=== PATIENT | male | born 2000 | race Caucasian/White ===

== ENCOUNTER 2022-07-13 00:41 | Observation (INO) | payer OTHER ==
[2022-07-13] MEDS ORDERED: TRANEXAMIC ACID 1,000 MG in SODIUM CHLORIDE 0.9% 250 ML IV ONE (01:36)
[2022-07-13] MEDS ORDERED: TRANEXAMIC 1,000 MG/100ML-NACL 1,000 MG in SALINE 1 100ML.BAG IV STA (01:36)
[2022-07-13 01:57] LABS: Basophils % (A) 0 %; Eosinophils # (A) 0.2 k/uL (0-0.7); Eosinophils % (A) 1 %; HCT 36.3 % (39.0-53.0); HGB 12.6 gm/dL (13.0-17.5); Lymphocytes # (A) 1.2 k/uL (1.0-4.8); Lymphocytes % (A) 10 %; MCH 29.8 pg (25.0-35.0); MCHC 34.7 g/dL (31.0-37.0); MCV 85.8 fL (80.0-100.0); Mean Platelet Volume 7.1; Monocytes # (A) 0.5 k/uL (0-1.0); Monocytes % (A) 5 %; Neutrophils # (A) 9.8 k/uL (1.3-7.7); Neutrophils % (A) 83 %; Platelet Count 302 k/uL (150-450); RBC 4.23 m/uL (4.30-5.90); RDW 13.3 % (11.5-15.5); WBC 11.8 k/uL (4.0-11.0)
[2022-07-13 02:10] LABS: ALT 22 U/L (4-49); AST 28 U/L (17-59); African American GFR (CKD) >90 (>60 ml/min/1.73 sqM); Albumin 4.4 g/dL (3.5-5.0); Alkaline Phosphatase 74 U/L (38-126); Anion Gap 10 mmol/L; Blood Urea Nitrogen 20 mg/dL (9-20); Calcium 9.7 mg/dL (8.4-10.2); Carbon Dioxide 27 mmol/L (22-30); Chloride 103 mmol/L (98-107); Glucose 105 mg/dL (74-99); Non-African American GFR(CKD) >90 (>60 ml/min/1.73 sqM); Sodium 140 mmol/L (137-145); Total Bilirubin 0.6 mg/dL (0.2-1.3); Total Protein 7.7 g/dL (6.3-8.2)
--- NOTE | 2022-07-13 02:10 | ED ---
General Adult HPI - General Chief complaint: ENT Stated complaint: throwing up blood Time Seen by Provider: 07/13/22 01:06 Source: patient, RN notes reviewed, old records reviewed Mode of arrival: ambulatory Limitations: no limitations - History of Present Illness Initial comments: 21-year-old male who is 9 days postop tonsillectomy at outside facility presenting for vomiting blood and spitting up blood. Patient does report that he feels somewhat lightheaded. He's states that he had some bleeding this morning and had contacted his ENT surgeon who recommended follow-up tomorrow morning however this evening the bleeding has increased and the patient has spit up numerous large clots. - Related Data Allergies Allergy/AdvReac Type Severity Reaction Status Date / Time No Known Allergies Allergy Verified 07/13/22 00:58 Review of Systems ROS Statement: Those systems with pertinent positive or pertinent negative responses have been documented in the HPI. ROS Other: All systems not noted in ROS Statement are negative. Past Medical History Past Medical History: No Reported History History of Any Multi-Drug Resistant Organisms: None Reported Past Surgical History: Tonsillectomy Past Psychological History: No Psychological Hx Reported Smoking Status: Current every day smoker, Vaper Past Alcohol Use History: None Reported Past Drug Use History: None Reported General Exam Limitations: no limitations General appearance: alert, in distress Head exam: Present: atraumatic, normocephalic Eye exam: Present: normal appearance, PERRL ENT exam: Present: other (Brisk bleeding from the left tonsillar bed) Respiratory exam: Present: normal lung sounds bilaterally. Absent: respiratory distress Cardiovascular Exam: Present: regular rate, normal rhythm GI/Abdominal exam: Present: soft. Absent: distended, tenderness, guarding Extremities exam: Present: normal inspection Neurological exam: Present: alert, oriented X3 Skin exam: Present: pallor Course Vital Signs 07/13/22 07/13/22 07/13/22 00:54 02:08 02:29 Temperature 98 F Pulse Rate 65 106 H 70 Respiratory 18 18 Rate Blood Pressure 125/77 127/78 O2 Sat by Pulse 100 99 Oximetry - Reevaluation(s) Reevaluation #1: 07/13/[address] Robledo, patient will be taken to the operating room Reevaluation #2: 07/13/22 02:20 Patient vomits approximately 1 L of lucian blood, massive transfusion protocol was initiated so that blood can be readily available. Hemodynamics are still relatively stable, heart rate is increased to 80 or 90 and a blood pressure is 116 systolic Medical Decision Making - Medical Decision Making Was pt. sent in by a medical professional or institution (NADEEM Winn, FOLDED TOWEL MACHINE OPERATOR, urgent care, hospital, or residential...) When possible be specific @ -No Did you speak to anyone other than the patient for history (EMS, parent, family, police, friend...)? What history was obtained from this source @Patient's father Did you review nursing and triage notes (agree or disagree)? Why? @ -I reviewed and agree with nursing and triage notes Were old charts reviewed (outside hosp., previous admission, EMS record, old EKG, old radiological studies, urgent care reports/EKG's, residential records)? Report findings @ -No old charts were reviewed Differential Diagnosis (chest pain, altered mental status, abdominal pain women, abdominal pain men, vaginal bleeding, weakness, fever, dyspnea, syncope, h eadache, dizziness, GI bleed, back pain, seizure, CVA, palpatations, mental health, musculoskeletal)? @Postoperative tonsillectomy hemorrhage EKG interpreted by me (3pts min.). @ -As above X-rays interpreted by me (1pt min.). @ -None done CT interpreted by me (1pt min.). @ -None done U/S interpreted by me (1pt. min.). @ -None done What testing was considered but not performed or refused? (CT, X-rays, U/S, l abs)? Why? @ -None What meds were considered but not given or refused? Why? @ -None Did you discuss the management of the patient with other professionals (professionals i.e. NADEEM Winn, FOLDED TOWEL MACHINE OPERATOR, lab, RT, psych nurse, forensic social worker, process owner, teacher, mounted police officer, piano case and bench assembler)? Give summary @ -Dr. Robledo who will take the patient to the operating room Was smoking cessation discussed for >3mins.? @ -No Was critical care preformed (if so, how long)? @ -Yes Were there social determinants of health that impacted care today? How? (Homelessness, low income, unemployed, alcoholism, drug addiction, transportation, low edu. Level, literacy, decrease access to med. care, residential, rehab)? @ -No Was there de-escalation of care discussed even if they declined (Discuss DNR or withdrawal of care, Hospice)? DNR status @ -No What co-morbidities impacted this encounter? (DM, HTN, Smoking, COPD, CAD, Cancer, CVA, ARF, Chemo, Hep., AIDS, mental health diagnosis, sleep apnea, morbid obesity)? @ -None Was patient admitted / discharged? Hospital course, mention meds given and route, prescriptions, significant lab abnormalities, going to OR and other pertinent info. @21-year-old male presenting with postoperative tonsillectomy hemorrhage, postoperative 9. Patient has significant hemorrhage from the tonsillar bed predominantly on the left. He is pale. Blood pressure and heart rate stable. Initial hemoglobin is 12.6. Elbow point I did activate massive transfusion protocol due to significant increase in heart rate to the 140s. Ultimately the patient did not require blood within the emergency department. He was taken urgently to the operating room for hemorrhage control. Undiagnosed new problem with uncertain prognosis? @ -No Drug Therapy requiring intensive monitoring for toxicity (Heparin, Nitro, Insulin, Cardizem)? @ -No Were any procedures done? @ -No Diagnosis/symptom? @Postoperative tonsillectomy hemorrhage Acute, or Chronic, or Acute on Chronic? @Acute Uncomplicated (without systemic symptoms) or Complicated (systemic symptoms)? @ -Complicated Side effects of treatment? @ -No Exacerbation, Progression, or Severe Exacerbation? @ -No Poses a threat to life or bodily function? How? (Chest pain, [place], [place], pneumonia, PE, COPD, DKA, ARF, appy, cholecystitis, CVA, Diverticulitis, Homicidal, Suicidal, threat to staff... and all critical care pts) @Yes, hemorrhagic shock - Lab Data Result diagrams: 07/13/22 01:45 07/13/22 01:45 Lab Results 07/13/22 07/13/22 07/13/22 Range/Units 01:45 01:45 01:45 WBC 11.8 H (4.0-11.0) k/uL RBC 4.23 L (4.30-5.90) m/uL Hgb 12.6 L (13.0-17.5) gm/dL Hct 36.3 L (39.0-53.0) % MCV 85.8 (80.0-100.0) fL MCH 29.8 (25.0-35.0) pg MCHC 34.7 (31.0-37.0) g/dL RDW 13.3 (11.5-15.5) % Plt Count 302 (150-450) k/uL MPV 7.1 Neutrophils % 83 % Lymphocytes % 10 % Monocytes % 5 % Eosinophils % 1 % Basophils % 0 % Neutrophils # 9.8 H (1.3-7.7) k/uL Lymphocytes # 1.2 (1.0-4.8) k/uL Monocytes # 0.5 (0-1.0) k/uL Eosinophils # 0.2 (0-0.7) k/uL Basophils # 0.0 (0-0.2) k/uL PT 10.8 (9.0-12.0) sec INR 1.0 (<1.2) APTT 26.1 (22.0-30.0) sec Sodium 140 (137-145) mmol/L Potassium 4.0 (3.5-5.1) mmol/L Chloride 103 (98-107) mmol/L Carbon Dioxide 27 (22-30) mmol/L Anion Gap 10 mmol/L BUN 20 (9-20) mg/dL Creatinine 0.79 (0.66-1.25) mg/dL Est GFR (CKD-EPI)AfAm >90 (>60 ml/min/1.73 sqM) Est GFR (CKD-EPI)NonAf >90 (>60 ml/min/1.73 sqM) Glucose 105 H (74-99) mg/dL Calcium 9.7 (8.4-10.2) mg/dL Total Bilirubin 0.6 (0.2-1.3) mg/dL AST 28 (17-59) U/L ALT 22 (4-49) U/L Alkaline Phosphatase 74 (38-126) U/L Total Protein 7.7 (6.3-8.2) g/dL Albumin 4.4 (3.5-5.0) g/dL Blood Type Blood Type Confirm Blood Type Recheck Bld Type Recheck Status Antibody Screen Crossmatch Spec Expiration Date 07/13/22 07/13/22 Range/Units 01:51 01:51 WBC (4.0-11.0) k/uL RBC (4.30-5.90) m/uL Hgb (13.0-17.5) gm/dL Hct (39.0-53.0) % MCV (80.0-100.0) fL MCH (25.0-35.0) pg MCHC (31.0-37.0) g/dL RDW (11.5-15.5) % Plt Count (150-450) k/uL MPV Neutrophils % % Lymphocytes % % Monocytes % % Eosinophils % % Basophils % % Neutrophils # (1.3-7.7) k/uL Lymphocytes # (1.0-4.8) k/uL Monocytes # (0-1.0) k/uL Eosinophils # (0-0.7) k/uL Basophils # (0-0.2) k/uL PT (9.0-12.0) sec INR (<1.2) APTT (22.0-30.0) sec Sodium (137-145) mmol/L Potassium (3.5-5.1) mmol/L Chloride (98-107) mmol/L Carbon Dioxide (22-30) mmol/L Anion Gap mmol/L BUN (9-20) mg/dL Creatinine (0.66-1.25) mg/dL Est GFR (CKD-EPI)AfAm (>60 ml/min/1.73 sqM) Est GFR (CKD-EPI)NonAf (>60 ml/min/1.73 sqM) Glucose (74-99) mg/dL Calcium (8.4-10.2) mg/dL Total Bilirubin (0.2-1.3) mg/dL AST (17-59) U/L ALT (4-49) U/L Alkaline Phosphatase (38-126) U/L Total Protein (6.3-8.2) g/dL Albumin (3.5-5.0) g/dL Blood Type A Positive Blood Type Confirm A Positive Blood Type Recheck No Previous Record Bld Type Recheck Status CABO Indicated Antibody Screen NEGATIVE Crossmatch See Detail Spec Expiration Date 07/16/2022 - 235 Critical Care Time Critical Care Time: Yes Total Critical Care Time: 35 Disposition Clinical Impression: Post-tonsillectomy hemorrhage, Acute blood loss anemia Disposition: ADMITTED IP TO THIS [facility] Condition: Serious Is patient prescribed a controlled substance at d/c from ED?: No Referrals: None,Stated [Primary Care Provider] - 1-2 days Time of Disposition: 02:07
[2022-07-13 02:14] LABS: Partial Thromboplastin Time 26.1 sec (22.0-30.0); Prothrombin Time 10.8 sec (9.0-12.0)
[2022-07-13] MEDS ORDERED: ONDANSETRON 4 MG/2 ML VIAL IVP STA (02:19)
[2022-07-13] MEDS ORDERED: DEXAMETHASONE SOD PHOSPHATE 4 MG/ML 1 ML VIAL ONE (03:09)
[2022-07-13] MEDS ORDERED: PROPOFOL 10 MG/ML 20 ML VIAL IV ONE (03:09)
[2022-07-13] MEDS ORDERED: fentaNYL (PF) 50 MCG/ML 2 ML AMP ONE (03:09)
[2022-07-13] MEDS ORDERED: ACETAMINOPHEN IV (For NPO) 1,000 MG/100 ML VIAL ONE (03:09)
[2022-07-13] MEDS ORDERED: MIDAZOLAM 2 MG/2 ML VIAL ONE (03:09)
[2022-07-13] MEDS ORDERED: LIDOCAINE 2% INJ 20 MG/ML (2 ML VIAL) ONE (03:09)
[2022-07-13] MEDS ORDERED: LACTATED RINGERS 900 ML IV ONE (03:09)
[2022-07-13] MEDS ORDERED: SUCCINYLCHOLINE CHLORIDE 200 MG/10 ML VIAL IV ONE (03:09)
[2022-07-13] MEDS ORDERED: PHENYLEPHRINE-0.9% NACL SYG 1,000 MCG/10 ML SYRINGE ONE (03:09)
[2022-07-13] MEDS ORDERED: LIDOCAINE 4% LTA KIT (4 ML) TOPICAL ONE (03:09)
[2022-07-13] MEDS ORDERED: NALOXONE 0.4 MG/ML 1 ML VIAL IV PRN ×2 (03:29→03:58)
[2022-07-13] MEDS ORDERED: BUPIVACAINE (PF) 0.5% 30 ML VIAL MISCELLANE ONE ×2 (03:32)
[2022-07-13] MEDS ORDERED: HYDROmorphone PCA 10 MG/50 ML BAG IV PRN (04:00)
[2022-07-13] MEDS: ACETAMINOPHEN IV (For NPO) 1,000 MG in EMPTY BAG 1 BAG IVPB SCH ×2 (05:06→13:36)
[2022-07-13] MEDS: LACTATED RINGERS 1,000 ML IV SCH ×2 (05:09→08:56)
[2022-07-13] MEDS ORDERED: LEVOTHYROXINE 125 MCG TAB PO SCH (06:30)
[2022-07-13] MEDS ORDERED: ONDANSETRON 4 MG/2 ML VIAL IVP PRN (08:00)
[2022-07-13 10:46] LABS: HCT 27.2 % (39.6-50.0); HGB 9.3 g/dL (13.0-17.0); MCH 29.8 pg (27.0-32.0); MCHC 34.2 g/dL (32.0-37.0); MCV 87.2 fL (80.0-97.0); Mean Platelet Volume 9.6 fL (9.5-12.2); NRBC Per 100 WBC 0 /100 WBCS (0.0-0.0); Platelet Count 221 X 10*3/uL (140-440); RBC 3.12 X 10*6/uL (4.40-5.60); RDW 13.2 % (11.5-14.5); WBC 10.71 X 10*3/uL (4.50-10.00)
[2022-07-13 13:24] VITALS: BP 112/70; PULSE 52; RESP 17; TEMP 97.4
--- NOTE | 2022-07-14 07:36 | HP ---
HISTORY AND PHYSICAL CHIEF COMPLAINT: Bleeding after a tonsillectomy. HISTORY OF PRESENT ILLNESS: This patient is a 21-year-old male who was seen in the emergency room department for evaluation of delayed postoperative tonsillectomy hemorrhaging. I was called at approximately 1:45 a.m. by the emergency room doctor. I discussed the situation with the ER doctor, he was bleeding profusely, and we decided to admit the patient for definitive treatment. It was decided to take the patient to the operating room. The patient states that approximately 9 days prior to his coming to the emergency department at [facility], he underwent an uneventful tonsillectomy. However, he did not follow his surgeon's instructions completely. He returned to work before he was advised to return. 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 Also, he did not stick to a soft diet as requested. He states that he ate a small submarine sandwich, Doritos, and eventually nachos. After eating the nachos, the patient states that the bleeding started and he was not able to get it stopped. He apparently followed his surgeon who scheduled him for an appointment to be seen in the office on , 07/14/2022. The patient had his surgery performed at a hospital in [place]. Because the bleeding became so profuse, he decided to come to [facility] Emergency Room Department. At the time he was in the emergency room, several hemoglobins were taken because the patient was bleeding quite profusely apparently from the left side. An intravenous line was placed in the patient. Initial hemoglobin was 12.9. Subsequent hemoglobin after the patient had been partially hydrated was 11.9. It was decided that the patient did not require any blood products. The patient will be taken to surgery for emergency control of delayed postoperative tonsillectomy hemorrhage. PAST MEDICAL HISTORY: Reveals he has no allergies to medications. MEDICATION: His only current medication is levothyroxine. REVIEW OF SYSTEMS: Positive for the metabolic endocrine because the patient is hypothyroid. Remainder of review of systems is unremarkable. PHYSICAL EXAMINATION: GENERAL: The patient is a 21-year-old male who was alert and cooperative. HEENT: The patient is normocephalic. Tympanic membranes normal. Middle ear space is free of any fluid or infection. Pupils are equal, round, and reactive to light and accommodation. Extraocular movements are within normal limits. Intranasal examination reveals mild septal deviation with compensatory hypertrophy of the inferior turbinates. Examination of oropharynx reveals a large blood clot located in the left empty tonsillar fossa. There appears to be active bleeding. Remainder of the head and neck exam is unremarkable. CHEST/CARDIOVASCULAR: Both lung lai are clear to percussion and auscultation. The patient is in regular sinus rhythm. S1, S2 present. No murmurs. ABDOMEN: There is no evidence any masses, megaly or tenderness. The abdomen is soft. SKIN: Unremarkable. MUSCULOSKELETAL: Within normal limits. NEUROLOGICAL: Within normal limits. Remainder of physical exam is unremarkable. IMPRESSION: Delayed post tonsillectomy hemorrhaging. PLAN: The patient is scheduled to be taken to surgery for emergency control of delayed post tonsillectomy hemorrhaging under general anesthesia. I have discussed the risks, benefits and alternative therapies for the above-mentioned procedure and for both sedation/analgesia as well as necessary blood product administration, if indicated, as they pertain to this patient. The patient has indicated his understanding and acceptance of the risks and procedures discussed. MMODL / IJN: [id number] /
--- NOTE | 2022-07-14 07:36 | OP ---
OPERATIVE REPORT DATE OF SERVICE : PREOPERATIVE DIAGNOSIS: Delayed postoperative tonsillectomy hemorrhaging of the left tonsillar fossa. POSTOPERATIVE DIAGNOSIS: Delayed postoperative tonsillectomy hemorrhaging of the left tonsillar fossa. ANESTHESIA: General. PROCEDURE PERFORMED: Emergency control of delayed postoperative tonsillectomy hemorrhaging of the left tonsillar fossa. COMPLICATIONS: None. ESTIMATED BLOOD LOSS: Less than 150 mL. DESCRIPTION OF PROCEDURE: The patient was placed on the operating table in supine position and after uneventful induction and endotracheal intubation, satisfactory general anesthesia was obtained. Next, the patient was draped in the usual and customary fashion. Following this, a #3 Kendra-Daron mouth gag was inserted into the patient's oropharynx, expanded, and suspended on a Delatorre stand. Immediate inspection revealed that the patient's posterior pharynx was filled with a large blood clot. This was suctioned free using a Yankauer suction. Further inspection revealed that the patient had a small residual tonsillar tag at the inferior pole of the left tonsillar fossa. In addition to this, there appeared to be an active, profusely bleeding arterial squatter. This area was adequately cauterized using the suction cautery in the usual fashion. All the areas of the tonsillar fossa were found to be bleeding, most likely because the scab came off, and these were also cauterized in the usual and customary fashion. Inspection of the right tonsil fossa did not reveal any evidence of any active bleeding. The left tonsil fossa was packed and the mouth gag was relaxed for a period of approximately 7 to 10 minutes. Upon reexpaning the mouth gag and removing the tonsillar sponge, inspection of the left tonsillar area revealed no active bleeding. Therefore, the procedure was terminated at this point. Estimated blood loss of less than 150 mL. The patient tolerated the procedure well and was returned to the recovery room in satisfactory condition. MMODL / IJN: [id number] /
== END 2022-07-13 15:39 | disposition home or self-care (01) ==
LOC: EC 00:41 → INTOOBSV 03:30 → 4SSUR 03:30 → UNDODISIN 15:39
PROVIDERS: ADMIT Otolaryngology; ATTEND Otolaryngology
DX: K92.0 Hematemesis (principal)
CPT/HCPCS: 96374; 96375; 99285; 36415; 94760; 86900; 86901; 80053; 85025; 85027; 85610; 85730; 86850; 86920; 42999; G0378; J2250; J0330; J1100; J0690; J2405; J3010; J0131; J2370; J2704; J1170; J2001; 99284

== ENCOUNTER 2023-08-09 14:39 | Emergency (ER) | payer OTHER ==
[2023-08-09 14:47] VITALS: RESP 18
--- NOTE | 2023-08-09 16:19 | ED ---
Upper Extremity HPI - General Chief Complaint: Extremity Injury, Upper Stated Complaint: lac to R hand Time Seen by Provider: 08/09/23 16:18 Source: patient, RN notes reviewed Mode of arrival: ambulatory Limitations: no limitations - History of Present Illness Initial Comments: 22-year-old male presented to the ER with a chief complaint of right hand lac eration. Patient reports he was using a utility knife to open a plastic Gatorade bottle and accidentally cut his right second knuckle. He states it extremely painful to actively extend his right second digit but is able to fully flex without complication. Denies any other injuries. Tetanus status unknown. Denies any paresthesias. No other complaints. - Related Data Home Medications Medication Instructions Recorded Confirmed Cholecalciferol (Vitamin D3) 75 mcg PO DAILY 07/13/22 07/13/22 [Vitamin D3 (3000 Iu)] Levothyroxine Sodium [Synthroid] 125 mcg PO DAILY 07/13/22 07/13/22 Methylphenidate HCl [Ritalin LA] 20 mg PO DAILY 07/13/22 07/13/22 Sertraline [Zoloft] 50 mg PO DAILY 07/13/22 07/13/22 Allergies Allergy/AdvReac Type Severity Reaction Status Date / Time amoxicillin AdvReac Vomiting Verified 08/09/23 14:47 Review of Systems ROS Statement: Those systems with pertinent positive or pertinent negative responses have been documented in the HPI. ROS Other: All systems not noted in ROS Statement are negative. Past Medical History Past Medical History: No Reported History Additional Past Medical History / Comment(s): Hypothyroid History of Any Multi-Drug Resistant Organisms: None Reported Past Surgical History: Tonsillectomy Additional Past Surgical History / Comment(s): [place] teeth, foot surgery Past Psychological History: No Psychological Hx Reported Smoking Status: Current every day smoker, Vaper Past Alcohol Use History: None Reported Past Drug Use History: Marijuana General Exam Limitations: no limitations General appearance: alert, in no apparent distress Respiratory exam: Present: normal lung sounds bilaterally. Absent: respiratory distress, wheezes, rales, rhonchi, stridor Cardiovascular Exam: Present: regular rate, normal rhythm, normal heart sounds. Absent: systolic murmur, diastolic murmur, rubs, gallop, clicks Extremities exam: Present: other (2 cm laceration to right dorsal 2nd MTP joint. 2+ right radial pulse. Patient has full active flexion of second digit. Painful extension. Intact) Skin exam: Present: warm, dry, intact, normal color. Absent: rash Course Vital Signs 08/09/23 08/09/23 14:43 17:46 Temperature 98 F 98.1 F Pulse Rate 67 80 Respiratory 18 18 Rate Blood Pressure 112/75 126/76 O2 Sat by Pulse 98 99 Oximetry Procedures - Laceration Laceration #1 Consent Obtained: verbal consent Indication: laceration Site: hand Size (cm): 2 Description: linear Depth: involves tendon (partially) Anesthetic Used: lidocaine 1%, without epi Anesthesia Technique: local infiltration Amount (mls): 6 Pre-repair: wound explored, irrigated extensively Type of Sutures: nylon Size of Sutures: 4-0 Number of Sutures: 7 Technique: simple, interrupted Patient Tolerated Procedure: well, no complications Medical Decision Making - Medical Decision Making Was pt. sent in by a medical professional or institution (, PA, DIRECTOR OF ADVERTISING SALES, urgent care, hospital, or detention...) When possible be specific @ -No Did you speak to anyone other than the patient for history (EMS, parent, family, police, friend...)? What history was obtained from this source @ -No Did you review nursing and triage notes (agree or disagree)? Why? @ -I reviewed and agree with nursing and triage notes Were old charts reviewed (outside hosp., previous admission, EMS record, old EKG, old radiological studies, urgent care reports/EKG's, detention records)? Report findings @ -No old charts were reviewed Differential Diagnosis (chest pain, altered mental status, abdominal pain women, abdominal pain men, vaginal bleeding, weakness, fever, dyspnea, syncope, headache, dizziness, GI bleed, back pain, seizure, CVA, palpatations, mental health, musculoskeletal)? @ -Laceration, abrasion, contusion, avulsion, foreign body this list is not meant to be all-inclusive EKG interpreted by me (3pts min.). @ -None X-rays interpreted by me (1pt min.). @ -Right hand x-ray interpreted me negative for acute osseous process CT interpreted by me (1pt min.). @ -None done U/S interpreted by me (1pt. min.). @ -None done What testing was considered but not performed or refused? (CT, X-rays, U/S, labs)? Why? @ -None What meds were considered but not given or refused? Why? @ -None Did you discuss the management of the patient with other professionals (professionals i.e. , PA, DIRECTOR OF ADVERTISING SALES, lab, RT, psych nurse, high school social studies teacher, bioinformatics associate, teacher, home school liaison officer, case picker)? Give summary @ -No Was smoking cessation discussed for >3mins.? @ -No Was critical care preformed (if so, how long)? @ -No Were there social determinants of health that impacted care today? How? (Homelessness, low income, unemployed, alcoholism, drug addiction, transportation, low edu. Level, literacy, decrease access to med. care, fci, rehab)? @ -No Was there de-escalation of care discussed even if they declined (Discuss DNR or withdrawal of care, Hospice)? DNR status @ -No What co-morbidities impacted this encounter? (DM, HTN, Smoking, COPD, CAD, Cancer, CVA, ARF, Chemo, Hep., AIDS, mental health diagnosis, sleep apnea, morbid obesity)? @ -None Was patient admitted / discharged? Hospital course, mention meds given and route, prescriptions, significant lab abnormalities, going to OR and other pertinent info. @ -Discharge. 22-year-old male presented to the ER with a chief complaint of right hand injury. History and physical exam completed. Vitals stable. Patient in no signs of acute distress and nontoxic-appearing. There is a 2 cm laceration to right dorsal second MTP joint. Right upper extremity neurovascular intact. Patient has full active flexion of second digit with painful extension. X-rays obtained to rule out osseous process. X-rays negative for acute process. Tetanus updated and IM Toradol given. Laceration closed using 7 simple interrupted sutures, patient tolerated procedure well. Patient remained neurovascular intact post procedure. Due to concern of tendon involvement as patient is having painful and difficulty with second digit extension patient placed in a finger splint and advised to follow-up closely with orthopedics, referral given. Strict return parameters discussed. Patient discharged in stable condition. Patient verbally expressed understanding and agreed with care plan. Case discussed with ED attending, Dr. Melton. Undiagnosed new problem with uncertain prognosis? @ -No Drug Therapy requiring intensive monitoring for toxicity (Heparin, Nitro, Insulin, Cardizem)? @ -No Were any procedures done? @ -Yes Diagnosis/symptom? @ -Laceration Acute, or Chronic, or Acute on Chronic? @ -Acute Uncomplicated (without systemic symptoms) or Complicated (systemic symptoms)? @ -Uncomplicated Side effects of treatment? @ -No Exacerbation, Progression, or Severe Exacerbation? @ -No Poses a threat to life or bodily function? How? (Chest pain, [place], [place], pneumonia, PE, COPD, DKA, ARF, appy, cholecystitis, CVA, Diverticulitis, Homicidal, Suicidal, threat to staff... and all critical care pts) @ -No - Radiology Data Radiology results: report reviewed, image reviewed Disposition Clinical Impression: Laceration Disposition: HOME SELF-CARE Condition: Stable Instructions (If sedation given, give patient instructions): Care For Your Stitches (DC) Additional Instructions: Please follow-up with orthopedics in the next 1 to 2 days. You may take [id number] Tylenol and Motrin for pain control. Have sutures removed in 10 to 14 days. Keep area clean and dry. Return to the ER for any new or worsening concerns. Is patient prescribed a controlled substance at d/c from ED?: No Referrals: Festus Amaya MD [Primary Care Provider] - 1-2 days Manuel Ott DO [Doctor of Osteopathic Medicine] - 1-2 days Time of Disposition: 17:29
[2023-08-09] MEDS: LIDOCAINE 1% INJ 10MG/ML (20 ML MDV) SQ ONE (16:23)
[2023-08-09] MEDS: KETOROLAC 15 MG/ML 1 ML VIAL IM STA (16:23)
[2023-08-09] MEDS: DIPH,PERTUS(ACELL)TETVAC-LF 0.5 ML VIAL IM ONE (16:24)
--- NOTE | 2023-08-09 17:01 | XR ---
EXAMINATION TYPE: XR hand complete RT DATE OF EXAM: 08/09/2023 4:45 PM CLINICAL INDICATION:Male, 22 years old with history of wound; [facility] COMPARISON: None TECHNIQUE: XR hand complete RT Frontal, lateral and oblique views were obtained. FINDINGS: Few scattered hyperdense foci are seen in the wound bed of the second digit volar surface. Normal alignment of the visualized joints. No acute osseous pathology is identified. No evidence of soft tissue swelling. No significant degeneration IMPRESSION: 1. No acute osseous pathology. 2. Soft tissue injury to the second digit volar surface with debris in the wound.
[2023-08-09 17:49] VITALS: BP 126/76; PULSE 80; TEMP 98.1
== END 2023-08-09 17:49 | disposition home or self-care (01) ==
LOC: EC 14:39
DX: S61.411A Laceration without foreign body of right hand, initial encounter (principal); F17.290 Nicotine dependence, other tobacco product, uncomplicated; F12.90 Cannabis use, unspecified, uncomplicated; Z88.0 Allergy status to penicillin; Z23 Encounter for immunization; W26.0XXA Contact with knife, initial encounter
CPT/HCPCS: 99283; 90471; 96372; 73130; 90715; 12001; J2001; J1885